=== PATIENT | female | born 1950 | race Caucasian/White ===

== ENCOUNTER → 2020-12-19 | Outpatient (CLI) | payer MEDICARE, SELFPAY ==
[~2020-12-19] MED LIST: DICLOFENAC SODI75 MG PO; HYDROCODON-ACE1 EAC2 PO; LISINOPRIL-HCT1 EAC2 PO; MACROBID 100 M100 MG PO; OMEPRAZOLE20 MG PO; PERCOCET 10-321 EACH PO; TYLENOL 325MG325 MG PO; VITAMIN D PO; XARELTO10 MG PO
== END ==
LOC: KOH-I 13:22
DX: Z47.89 Encounter for other orthopedic aftercare (principal); Z98.1 Arthrodesis status
CPT/HCPCS: 73610; 73630

== ENCOUNTER → 2021-03-23 | Outpatient (CLI) | payer MEDICARE, OTHER | LOC: KOH-I 13:38 | DX: M79.671 Pain in right foot (principal); M25.571 Pain in right ankle and joints of right foot; Z98.890 Other specified postprocedural states | CPT/HCPCS: 73610; 73630 ==